=== PATIENT | female | born 1935 | race Hispanic/Latino ===

== ENCOUNTER 2022-07-18 11:56 | Emergency (ER) | payer OTHER, MEDICARE ==
[~2022-07-18] VITALS: Ht 149.9 cm; Wt 42.2 kg
[2022-07-18] MEDS ORDERED: 0.9%NACL 1000ML 1,000 ML IV ONE (13:00)
[2022-07-18] MEDS ORDERED: ONDANSETRON 4MG INJ IVP ONE (13:00)
[2022-07-18 13:24] LABS: BASOPHILS % (AUTO) 0.6 % (0.0-5.0); HEMATOCRIT 36.5 % (36-48); LYMPHOCYTES % (AUTO) 33.4 % (21.0-51.0); MEAN CORPUSCULAR HEMOGLOBIN 29.7 pg (27.0-33.0); MEAN CORPUSCULAR HGB CONC 33.2 g/dL (32.0-36.0); MEAN CORPUSCULAR VOLUME 89.7 fL (79-99); MONOCYTES % (AUTO) 5.7 % (3.0-13.0); NEUTROPHILS % (AUTO) 56.1 % (40.0-77.0); PLATELET COUNT (AUTO) 137 K/uL (130-400); RED BLOOD CELL COUNT(AUTO) 4.07 MIL/uL (4.00-5.50); WHITE BLOOD COUNT (AUTO) 5.2 K/uL (4.8-10.8)
[2022-07-18 13:51] LABS: CREATININE 0.6 mg/dL (0.5-1.5); POTASSIUM 3.5 mmol/L (3.5-5.1)
[2022-07-18 13:57] LABS: TOTAL PROTEIN, SERUM 7.1 g/dL (6.0-8.3)
[2022-07-18] MEDS ORDERED: IOHEXOL 350 MG/ML 100ML INFUS..BTL IV ONE (15:49)
[2022-07-18 17:03] VITALS: BP 121/62
[2022-07-18] MEDS ORDERED: DICY20TA2 PO (17:07)
== END 2022-07-18 17:39 | disposition home or self-care (01) ==
LOC: EDH 11:56
DX: K52.9 Noninfective gastroenteritis and colitis, unspecified (principal); E11.9 Type 2 diabetes mellitus without complications; E78.00 Pure hypercholesterolemia, unspecified; I10 Essential (primary) hypertension; Z20.822 Contact with and (suspected) exposure to COVID-19
CPT/HCPCS: 99285; 74177; 96374; 71045; 87635; 96361; 84484; 80053; 85025; 87880; 87804 ×2; 83605; 36415; 93005; C9803; J7030; J2405; Q9967